=== PATIENT | female | born 1985 | race Caucasian/White ===

== ENCOUNTER 2016-10-29 16:54 | Inpatient (IN) | payer MEDICAID ==
[~2016-10-29] VITALS: Ht 160 cm; Wt 76.4 kg
[2016-10-29 17:05] VITALS: Ht 160 cm; Wt 76.4 kg
[2016-10-29] MEDS ORDERED: PRENAT PO (17:05)
[2016-10-29 17:06] VITALS: BP 124/83; PULSE 84; RESP 18
[2016-10-29 17:36] LABS: ADD UMIC YES; URINE BILIRUBIN (Dip) NEGATIVE (NEGATIVE); URINE BLOOD (Dip) 2+ (NEGATIVE); URINE COLOR LT. YELLOW (YELLOW); URINE GLUCOSE (Dip) NEGATIVE (NEGATIVE); URINE KETONES (Dip) NEGATIVE (NEGATIVE); URINE LEUKOCYTE ESTERASE (Dip) 2+ (NEGATIVE); URINE NITRITE (Dip) NEGATIVE (NEGATIVE); URINE TOTAL PROTEIN (Dip) NEGATIVE (NEGATIVE); URINE UROBILINOGEN (Dip) 0.2 E.U./dL (0.1-1.0)
[2016-10-29 18:12] LABS: BACTERIA,URINE MANY; SQUAMOUS EPITHELIAL CELL,UR MODERATE
--- NOTE | 2016-10-29 18:16 | RADRPT ---
PROCEDURE: Limited obstetric ultrasound CLINICAL INDICATION: distress TECHNIQUE: Multiple transverse and longitudinal grayscale images of the pelvis were obtained hawkins sabdominally and endovaginally.. COMPARISON: same day FINDINGS: There is a single live intrauterine gestation in a vertex position with a heart rate of 152 bp m. The cervix is closed and measures 3.4 cm in length. RPTAT: AA IMPRESSION: Cervix length measures 3.4 cm. Physician Tonio Date Time Electronically viewed and signed by Fco Lemus Physician on 10/29/2016 18:15 RA/
--- NOTE | 2016-10-29 19:43 | RADRPT ---
PROCEDURE: Renal US. CLINICAL INDICATION: with flank pain. TECHNIQUE: Multiple sonographic images of the kidneys were obtained. The images were reviewed on a PACS workstation. COMPARISON: No prior studies are available for comparison. FINDINGS: The right kidney measures 10.9 cm. The left kidney measures 0.0 cm. The kidneys demonstrate normal e chogenicity. Mild right hydronephrosis is observed. No solid masses or stones are seen. The bladder is filled with a moderate amount of urine and has an unremarkable appearance. IMPRESSION: Moderate right hydronephrosis. Etiology is uncertain. If further characterization is needed MRI co uld be helpful. RPTAT: AA .Hollis Nielson MD, Date Time Electronically viewed and signed by .Hollis Nielson MD, on 10/29/2016 19:43 .P/
[2016-10-29] MEDS ORDERED: DEXTROSE 5%-LR 1,000 ML IV SCH (20:30)
[2016-10-29] MEDS ORDERED: AL HYDROX/MG HYDROX/SIMETH 30 ML CUP PO PRN (20:30)
[2016-10-29] MEDS ORDERED: ACETAMINOPHEN 325 MG TAB PO PRN (20:30)
[2016-10-29] MEDS ORDERED: BUTORPHANOL 2 MG INJ IV PRN ×2 (21:00)
[2016-10-29] MEDS ORDERED: ONDANSETRON 4 MG INJ IV PRN (21:00)
--- NOTE | 2016-10-29 21:04 | TRIAGE ---
OB Triage Datetime Report Generated by CPN: 10/29/2016 21:04 Datetime: 10/29/2016 20:00 Vaginal Exam Membrane Status: Intact Datetime: 10/29/2016 18:27 Labor Evaluation Frequency: OCCAS Monitor Mode: External Duration (sec)2399: 40-70 Quality: Mild Pattern: Normal: <= 5 Contractions in 10 Minutes Resting Tone [place]: Relaxed Heart Rate FHR Baseline Rate: 145 Monitor Mode: External US FHR Baseline Changes: No Baseline Change Variability: Moderate 6-25 bpm Accelerations: 15X15 Decelerations: None Category: Category I Datetime: 10/29/2016 17:30 Labor Evaluation Frequency: OCCAS Monitor Mode: External Duration (sec)2399: 40-60 Quality: Mild Pattern: Normal: <= 5 Contractions in 10 Minutes Resting Tone [place]: Relaxed Heart Rate FHR Baseline Rate: 145 Monitor Mode: External US Variability: Moderate 6-25 bpm Accelerations: 15X15 Decelerations: None Category: Category I Datetime: 10/29/2016 17:12 Assessment Type: Admission Assessment Maternal Assessment Level of Consciousness: Fully Conscious DTR's/Clonus: DTRs 2+; No Clonus Headache: Denies Blurred Vision: No Respiratory Effort: Unlabored; Regular Rhythm; Equal Expansion Breath Sounds, Left: Clear and Equal Breath Sounds, Right: Clear and Equal Nausea/Vomiting: Denies RUQ Epigastric Pain: Denies Lower Extremities Edema: None Degree: None Upper Extremities Edema: None Degree: None Facial Edema: None Fall Risk Assessment History of Falling: (0) No Secondary Diagnosis: (0) No Ambulatory Aid: (0) Bedrest/Nurse Assist IV Therapy: (0) No Gait: (0) Normal/Bedrest/Immobile Mental Status: (0) Oriented to Own Ability Fall Score: 0 Fall Risk Score Definition: No Risk: No action required Datetime: 10/29/2016 17:09 Time of Arrival: 10/29/2016 19:45 EGA: 31.3 Arrived By: Ambulatory Arrived From: Home Chief Complaint: BACK PAIN Movement: Present Contractions: Denies/Absent Rupture of Membranes: Denies Vaginal Bleeding: None Vaginal Discharge: Denies Recent Sexual Intercouse: Denies Abdominal Trauma: Not Applicable Patient Complaints: Back Pain; Other Time Provider Notified: 10/29/2016 17:54 Provider Notified: DR BROWN Initial Plan: NST, UA AND CERVICAL LENGHT
[2016-10-29 21:12] LABS: ADD SCAN DIFF NO
[2016-10-29 21:21] LABS: BASOPHILS % 0.2 % (0.0-2.0); EOSINOPHILS % 0.1 % (0.0-7.0); HEMATOCRIT 37.9 % (37.0-47.0); LYMPHOCYTES % 12.9 % (15.0-51.0); MEAN CORPUSCULAR HEMOGLOBIN 32.2 pg (29.0-33.0); MEAN CORPUSCULAR HGB CONC 34.3 g/dl (32.0-37.0); MEAN CORPUSCULAR VOLUME 93.8 fl (82.0-101.0); MEAN PLATELET VOLUME 10.2 fl (7.4-10.4); MONOCYTE # 0.7 10^3/ul (0.3-0.9); MONOCYTES % 4.4 % (0.0-11.0); NEUTROPHIL # 12.6 10^3/ul (1.6-7.5); NEUTROPHILS % 81.7 % (39.0-77.0); PLATELET COUNT 336 10^3/UL (140-415); RED BLOOD COUNT 4.04 10^6/ul (4.20-5.40); RED CELL DISTRIBUTION WIDTH 12.4 % (11.5-14.5); WHITE BLOOD COUNT 15.4 10^3/ul (4.8-10.8)
[2016-10-29 21:30] LABS: ALBUMIN 3.7 g/dl (3.3-4.9)
[2016-10-29] MEDS: DEXTROSE 5%-LR 1,000 ML IV SCH (21:30)
[2016-10-29 21:31] LABS: POTASSIUM 4.6 mmol/L (3.5-5.1)
[2016-10-29 21:33] LABS: ALBUMIN/GLOBULIN RATIO 1.12; BILIRUBIN,INDIRECT 0.4 mg/dl (0-1.1); BILIRUBIN,TOTAL 0.4 mg/dl (0.2-1.3); CREATININE 0.57 mg/dl (0.44-1.00)
[2016-10-29 21:34] LABS: CALCIUM 9.8 mg/dl (8.4-10.2)
[2016-10-29] MEDS: CEFAZOLIN 2 GM/50 ML (PMX) 50 ML IV SCH (21:44)
--- NOTE | 2016-10-29 21:49 | HP ---
Date/Time of Note Date/Time of Note DATE: 10/29/16 TIME: 21:41 OB - History Hx of Present Free Text/Dictation 31 y.o. A1 with an IUP at 31w 3 d c/o right flank pain since yesterday. Denies fever, chills, nausea, vomiting. Last Menstrual Period: Oct 29, 2016 Estimated Due Date: Dec 28, 2016 : 3 Para: 1 Spontaneous : 1 Care: Good Care Ultrasounds: Normal mid trimester US Obstetrical Complications: None Medical Complications: None Past Family/Social History * records not available at this time. Per pt no medical problems. Past surgical history includes one D and C only. Past OB history is one only. NKDA OB Admission Exam Vital Signs Vital Signs Vital Signs Date Time Temp Pulse Resp B/P Pulse Ox O2 Delivery O2 Flow Rate FiO2 10/29/16 17:06 98.0 84 18 124/83 Room Air Physical Exam HEENT: WNL Heart: Rhythm Normal Lungs: Clear Abdomen: Abnormal (1-2+ right CVAT. Left negative.) Extremities: Normal Reflexes: Normal Accelerations: Accelerations Present Decelerations: No Decelerations Varibility: Moderate Contractions on Admission: None Last 72 hours Lab Results CBC & BMP 10/29/16 20:35 OB Assessment/Plan Reason for admission: other (Right pyleonephritis.) Plan: Other (IV Ancef, IV hydration, pain medicataions as needed. Urine cx.) DAMON GA MD Oct 29, 2016 21:49
[2016-10-30] MEDS: DEXTROSE 5%-LR 1,000 ML IV SCH ×3 (01:09→18:24)
[2016-10-30] MEDS: CEFAZOLIN 2 GM/50 ML (PMX) 50 ML IV SCH ×3 (05:55→21:52)
[2016-10-30] MEDS: MULTIVIT/MIN/FOLATE/IRON/PREN TAB PO SCH (09:16)
[2016-10-30] MEDS: GENTAMICIN 80 MG/NS (PMX) 50 ML IVPB SCH ×2 (16:01→23:53)
--- NOTE | 2016-10-30 19:44 | PN ---
Date/Time of Note Date/Time of Note DATE: 10/30/16 TIME: 19:40 OB Subjective Subjective Subjective Afebrile vital signs stable, no complaint of back pain she says that she feels much better since admission currently on 2 antibiotics Keflex and gentamicin Urine has been sent for culture and sensitivity report not available yet, baby is doing well with category 1 heart tracing . ABIOLA BROWN MD Oct 30, 2016 19:44
[2016-10-30] MEDS: LACTATED RINGER'S 1,000 ML IV SCH (20:15)
[2016-10-31] MEDS: LACTATED RINGER'S 1,000 ML IV SCH (05:31)
[2016-10-31] MEDS: CEFAZOLIN 2 GM/50 ML (PMX) 50 ML IV SCH ×2 (05:31→10:00)
[2016-10-31] MEDS: GENTAMICIN 80 MG/NS (PMX) 50 ML IVPB SCH (08:01)
[2016-10-31] MEDS: MULTIVIT/MIN/FOLATE/IRON/PREN TAB PO SCH (09:01)
--- NOTE | 2016-10-31 13:31 | DS ---
Date/Time of Note Date/Time of Note DATE: 10/31/16 TIME: 13:25 Obstetrical Discharge Record Final Diagnosis Final Diagnosis: not delivered Complications Other (Suspected pyelonephritis) Condition on Discharge Physical Assessment Last Vitals: This is a 31 years old female 3 para 1 AB [address] [facility] at 31 week and 5/7days with chief complaint of right flank pain tentative diagnosis of possible pyelonephritis, patient was placed on antibiotic therapy, urine was sent for urinalysis and culture the culture results after 48 hours negative patient's pain has been resolved no more complaining of flank pain while in the hospital ,she was on cephalosporin and gentamicin, responded well ,being discharged home with a prescription of nitro Furadantin, Current Medications Medications (Trade) Dose Ordered Sig/Alexander Route PRN Reason Start Time Stop Time Status Last Admin Dose Admin Cefazolin Sodium/ Dextrose (Ancef 2 Gm/50 ml (Pmx)) 50 ml @ 100 mls/hr Q8 IV 10/29/16 22:00 10/31/16 10:00 Prenat Multivit/ [place]/Iron/Folic Ac ( S) 1 tab DAILY PO 10/30/16 09:00 10/31/16 09:01 Acetaminophen (Tylenol Tab) 650 mg Q4H PRN PO PAIN AND OR ELEVATED TEMP 10/29/16 20:30 Al Hydrox/Mg Hydrox/ Simethicone 30 ml 30 ml Q6H PRN PO GASTROINTESTINAL UPSET 10/29/16 20:30 Dextrose/Lactated Ringer's 1,000 ml @ 500 mls/hr Q2H IV 10/29/16 20:30 10/29/16 21:30 DC 10/29/16 20:47 Dextrose/Lactated Ringer's (D5-Lr) 1,000 ml @ 125 mls/hr Q8H IV 10/29/16 21:30 10/30/16 20:03 DC 10/30/16 18:24 Butorphanol Tartrate (Stadol) 1 mg Q3H PRN IV PAIN 10/29/16 21:00 10/29/16 22:13 Butorphanol Tartrate (Stadol) 2 mg Q3H PRN IV PAIN 10/29/16 21:00 Ondansetron HCl 4 mg 4 mg Q4H PRN IV NAUSEA AND/OR VOMITING 10/29/16 21:00 Gentamicin Sulfate 50 ml @ 104 mls/hr Q8H IVPB 10/30/16 16:00 10/31/16 08:01 Lactated Ringer's (Lr) 1,000 ml @ 125 mls/hr Q8H IV 10/30/16 20:01 10/31/16 05:31 recommended to make an appointment to be seen at the clinic in 1 week Voiding: Yes Bowel Movement: Yes Breast: Soft, non-tender Calf Tenderness: No Patient Condition: Good ABIOLA BROWN MD Oct 31, 2016 13:31
== END 2016-10-31 14:00 | disposition home or self-care (01) | DRG 781 ==
LOC: OBT 16:54 → L-D 16:55 → OBT 19:45 → OBG 21:27
PROVIDERS: ADMIT Obstetrics & Gynecology; ATTEND Obstetrics & Gynecology
DX: O23.03 Infections of kidney in pregnancy, third trimester (principal); Z3A.31 31 weeks gestation of pregnancy
CPT/HCPCS: 76775; 76817; 80053; 81001; 81003; 85025; 87086; G0463; J0690; J1580; J7120; J7121

== ENCOUNTER 2016-12-31 02:30 | Inpatient (IN) | payer MEDICAID ==
[~2016-12-31] VITALS: Ht 160 cm; Wt 81.3 kg
[~2016-12-31 02:30] MED LIST: PRENAT PO
[2016-12-31 02:43] VITALS: Ht 160 cm; Wt 81.3 kg
[2016-12-31 02:44] VITALS: BP 123/83; PULSE 79; RESP 18
[2016-12-31] MEDS ORDERED: LACTATED RINGER'S 1,000 ML IV PRN (04:00)
[2016-12-31] MEDS: LACTATED RINGER'S 1,000 ML IV SCH ×3 (04:10→13:09)
[2016-12-31 04:17] LABS: ADD SCAN DIFF NO
[2016-12-31 04:27] LABS: BASOPHILS % 0.2 % (0.0-2.0); EOSINOPHILS # 0.1 10^3/ul (0.0-0.5); EOSINOPHILS % 1.1 % (0.0-7.0); HEMATOCRIT 35.4 % (37.0-47.0); HEMOGLOBIN 11.9 g/dl (12.0-16.0); LYMPHOCYTES # 2.4 10^3/ul (0.8-2.9); LYMPHOCYTES % 23.9 % (15.0-51.0); MEAN CORPUSCULAR HEMOGLOBIN 30.5 pg (29.0-33.0); MEAN CORPUSCULAR HGB CONC 33.6 g/dl (32.0-37.0); MEAN CORPUSCULAR VOLUME 90.8 fl (82.0-101.0); MEAN PLATELET VOLUME 11.3 fl (7.4-10.4); MONOCYTE # 0.6 10^3/ul (0.3-0.9); MONOCYTES % 5.7 % (0.0-11.0); NEUTROPHIL # 6.9 10^3/ul (1.6-7.5); NEUTROPHILS % 68.7 % (39.0-77.0); PLATELET COUNT 252 10^3/UL (140-415); RED CELL DISTRIBUTION WIDTH 13.6 % (11.5-14.5); WHITE BLOOD COUNT 10.1 10^3/ul (4.8-10.8)
[2016-12-31] MEDS ORDERED: OXYTOCIN 30 UNITS/LR 500 ML IV SCH ×3 (04:30)
[2016-12-31] MEDS ORDERED: OXYTOCIN 30 UNITS/LR 500 ML IV PRN (04:30)
[2016-12-31] MEDS ORDERED: CARBOPROST 250 MCG INJ IM PRN (04:30)
[2016-12-31] MEDS ORDERED: IBUPROFEN 600 MG TAB PO PRN (04:30)
[2016-12-31] MEDS ORDERED: ACETAMINOPHEN/CODEINE #3 TAB PO PRN ×3 (04:30→16:30)
[2016-12-31] MEDS ORDERED: MISOPROSTOL 200 MCG TAB PR PRN (04:30)
[2016-12-31] MEDS ORDERED: LIDOCAINE 1% (MPF) 30 ML INJ INJ PRN (04:30)
[2016-12-31] MEDS ORDERED: METHYLERGONOVINE 0.2 MG INJ IM PRN (04:30)
[2016-12-31] MEDS ORDERED: AMPICILLIN 2 GM/NS (PMX) 100 ML IV ONE (04:30)
[2016-12-31] MEDS ORDERED: BUTORPHANOL 2 MG INJ IV PRN ×2 (04:30)
[2016-12-31 04:33] LABS: INR 0.92; PARTIAL THROMBOPLASTIN TIME 27.6 Sec (25.0-35.0); PROTIME 12.4 Sec (12.2-14.2)
[2016-12-31 07:04] LABS: ALBUMIN 3.3 g/dl (3.3-4.9)
[2016-12-31 07:07] LABS: BILIRUBIN,INDIRECT 0.2 mg/dl (0-1.1); BILIRUBIN,TOTAL 0.2 mg/dl (0.2-1.3); CREATININE 0.57 mg/dl (0.44-1.00); TOTAL PROTEIN 6.6 g/dl (6.1-8.1)
[2016-12-31 07:08] LABS: CALCIUM 9.2 mg/dl (8.4-10.2); URIC ACID 4.2 mg/dl (3.1-7.9)
[2016-12-31 07:47] LABS: URINE COLOR LT. YELLOW (YELLOW)
[2016-12-31 07:48] LABS: ADD UMIC YES; URINE BILIRUBIN (Dip) NEGATIVE (NEGATIVE); URINE BLOOD (Dip) TRACE (NEGATIVE); URINE GLUCOSE (Dip) NEGATIVE (NEGATIVE); URINE KETONES (Dip) NEGATIVE (NEGATIVE); URINE LEUKOCYTE ESTERASE (Dip) NEGATIVE (NEGATIVE); URINE NITRITE (Dip) NEGATIVE (NEGATIVE); URINE TOTAL PROTEIN (Dip) NEGATIVE (NEGATIVE); URINE UROBILINOGEN (Dip) 0.2 E.U./dL (0.1-1.0)
[2016-12-31 07:49] LABS: BACTERIA,URINE FEW; URINE RBCS 0-2 /HPF (0)
[2016-12-31] MEDS ORDERED: AMPICILLIN 1 GM/NS (PMX) 50 ML IV SCH (08:30)
[2016-12-31] MEDS ORDERED: DIPHENHYDRAMINE 50 MG INJ IV PRN (12:30)
[2016-12-31] MEDS ORDERED: ONDANSETRON 4 MG INJ IV PRN ×2 (12:30→16:30)
[2016-12-31] MEDS ORDERED: NALOXONE (0.4 MG/ML) INJ IV PRN (12:30)
[2016-12-31] MEDS ORDERED: FENTAnyl 2MCG/ML-ROPIV 0.2% 100 ML BAG EPI SCH (12:30)
--- NOTE | 2016-12-31 14:33 | LDN ---
Date/Time of Note Date/Time of Note DATE: 12/31/16 TIME: 14:27 Delivery Summary Normal spontaneous vaginal delivery of a baby girl from OA position shoulders delivered without difficulty rest of the baby's body followed cord was clamped after stopped pulsation placenta spontaneous expulsion inspected complete, patient sustained small first-degree perineal laceration Weeks of Gestation 40 weeks and 3 day Placenta Delivered: Spontaneously Meconium: none Episiotomy: No Perineal laceration: 1 Laceration repair: First-degree perineal laceration repaired with 3-0 chromic catgut Anesthesia type: Epidural Estimated blood loss: 300 Sponge & Needle done & correct: Yes All needle counts correct: Yes Any foreign bodies felt in the: No Problems: Delivery Information Sex Infant Sex: female Apgars 1 Minute: 8 5 Minute: 9 Suctioning Nose & mouth suctioned at [place]: Yes Delee suction performed: No Umbilical Cord Umbilical cord with: 3 Vessels Cord presentations: no nuchal cord Cord Blood was obtained: Yes ABIOLA BROWN MD Dec 31, 2016 14:33
--- NOTE | 2016-12-31 14:37 | HP ---
Date/Time of Note Date/Time of Note DATE: 12/31/16 TIME: 14:33 OB - History Hx of Present Free Text/Dictation 30 years old female 3 para 1 EDC of December 28, 2016 admitted to [facility] in labor on admission pelvic examination cervical dilatation 2 cm 50% effacement vertex at -3 station 5 contractions every 10 minutes with intact membranes patient may require labor augmentation Chief Complaint: Labor contractions Estimated Due Date: Dec 28, 2016 : 3 Para: 1 Spontaneous : 1 Care: Good Care Ultrasounds: Normal mid trimester US Medical Complications: None Past Family/Social History * Past Medical, Surgical, Family and Obstetric Histories reviewed from chart. Rubella: immune RPR/VDRL: Negative GBS Status: Negative HBsAG: Negative OB Admission Exam Vital Signs Vital Signs Vital Signs Date Time Temp Pulse Resp B/P Pulse Ox O2 Delivery O2 Flow Rate FiO2 12/31/16 02:44 97.9 79 18 123/83 Room Air Physical Exam HEENT: WNL Heart: Rhythm Normal Lungs: Clear, Equal Extremities: Normal Reflexes: Normal Cervical Dilatation: 2cm Effacement: 50% Station: -2 Membranes: Intact Heart Rate: 130's Accelerations: Accelerations Present Decelerations: No Decelerations Varibility: Minimum Contractions on Admission: 6-10 Minutes Apart Intensity: Mild Last 72 hours Lab Results CBC & BMP 12/31/16 04:00 Liver Function Test 12/31/16 04:00 Alanine Aminotransferase (ALT/SGPT) 31 Albumin 3.3 Alkaline Phosphatase 214 H Aspartate Amino Transf (AST/SGOT) 29 Direct Bilirubin 0.00 Total Protein 6.6 OB Assessment/Plan Reason for admission: other (Early labor) Plan: Other (Labor augmentation) ABIOLA BROWN MD Dec 31, 2016 14:37
[2016-12-31 15:45] VITALS: BP 128/72; PULSE 83; RESP 18
[2016-12-31] MEDS ORDERED: WITCH HAZEL/GLYCERIN PAD PR PRN (16:30)
[2016-12-31] MEDS ORDERED: DIBUCAINE 1% 30 GM OINT PR PRN (16:30)
[2016-12-31] MEDS ORDERED: ACETAMINOPHEN 325 MG TAB PO PRN (16:30)
[2016-12-31] MEDS ORDERED: OXYCODONE/ASPIRIN (4.88/325) TAB PO PRN ×2 (16:30)
[2016-12-31] MEDS ORDERED: BENZOCAINE 20% 56 ML SPRAY TOP PRN (16:30)
[2016-12-31] MEDS ORDERED: LANOLIN 7 GM TUBE TOP PRN (16:30)
[2016-12-31] MEDS: OXYTOCIN 30 UNITS/LR 500 ML IV SCH ×2 (16:36→20:02)
[2016-12-31 16:45] VITALS: BP 122/68; PULSE 78; RESP 18
[2016-12-31] MEDS: IBUPROFEN 600 MG TAB PO SCH ×2 (17:43→23:35)
[2016-12-31 20:00] VITALS: BP 131/68; PULSE 72; RESP 18
[2016-12-31] MEDS: SENNA/DOCUSATE NA (8.6MG/50MG) TAB PO SCH (21:02)
[2016-12-31 23:54] VITALS: BP 127/66; PULSE 75; RESP 18
[2017-01-01 04:00] VITALS: BP 135/81; PULSE 79; RESP 18
[2017-01-01] MEDS: IBUPROFEN 600 MG TAB PO SCH ×4 (06:45→23:57)
[2017-01-01 08:00] VITALS: BP 130/80; PULSE 90; RESP 18
[2017-01-01 08:24] LABS: ADD SCAN DIFF NO
[2017-01-01 08:34] LABS: BASOPHILS % 0.3 % (0.0-2.0); EOSINOPHILS % 0.3 % (0.0-7.0); HEMATOCRIT 30.1 % (37.0-47.0); LYMPHOCYTES # 2.4 10^3/ul (0.8-2.9); LYMPHOCYTES % 18.3 % (15.0-51.0); MEAN CORPUSCULAR HEMOGLOBIN 30.6 pg (29.0-33.0); MEAN CORPUSCULAR HGB CONC 33.2 g/dl (32.0-37.0); MEAN PLATELET VOLUME 11.5 fl (7.4-10.4); MONOCYTE # 0.7 10^3/ul (0.3-0.9); MONOCYTES % 5.7 % (0.0-11.0); NEUTROPHIL # 9.6 10^3/ul (1.6-7.5); NEUTROPHILS % 75.1 % (39.0-77.0); PLATELET COUNT 260 10^3/UL (140-415); RED BLOOD COUNT 3.27 10^6/ul (4.20-5.40); RED CELL DISTRIBUTION WIDTH 13.7 % (11.5-14.5); WHITE BLOOD COUNT 12.8 10^3/ul (4.8-10.8)
--- NOTE | 2017-01-01 08:56 | PN ---
Date/Time of Note Date/Time of Note DATE: 01/01/17 TIME: 08:55 OB Subjective Subjective Subjective day 1 VSs afebrile abdomen soft uterus firm lochia normal extremity normal ambulation recommended. Laboratory Tests Test 01/01/17 07:40 White Blood Count 12.810^3/ul Red Blood Count 3.2710^6/ul Hemoglobin 10.0g/dl Hematocrit 30.1% Mean Corpuscular Volume 92.0fl Mean Corpuscular Hemoglobin 30.6pg Mean Corpuscular Hemoglobin Concent 33.2g/dl Red Cell Distribution Width 13.7% Platelet Count 22501^3/UL Mean Platelet Volume 11.5fl Neutrophils % 75.1% Lymphocytes % 18.3% Monocytes % 5.7% Eosinophils % 0.3% Basophils % 0.3% Nucleated Red Blood Cells % 0.0/100WBC Neutrophils # 9.610^3/ul Lymphocytes # 2.410^3/ul Monocytes # 0.710^3/ul Eosinophils # 0.010^3/ul Basophils # 0.010^3/ul Nucleated Red Blood Cells # 0.010^3/ul Current Medications Medications (Trade) Dose Ordered Sig/Alexander Route PRN Reason Start Time Stop Time Status Last Admin Dose Admin Lactated Ringer's 1,000 ml @ 125 mls/hr Q8H IV 12/31/16 04:03 12/31/16 16:03 DC 12/31/16 13:09 Ampicillin 100 ml @ 100 mls/hr ONCE ONCE IV 12/31/16 04:30 12/31/16 04:30 DC Ampicillin 50 ml @ 100 mls/hr Q4H IV 12/31/16 08:30 12/31/16 08:30 DC Oxytocin/Lactated Ringer's 500 ml @ 0 mls/hr TITRATE IV 12/31/16 04:30 12/31/16 16:03 DC 12/31/16 05:16 Butorphanol Tartrate (Stadol) 1 mg Q2H PRN IV PAIN 12/31/16 04:30 12/31/16 16:03 DC Butorphanol Tartrate (Stadol) 2 mg Q2H PRN IV PAIN 12/31/16 04:30 12/31/16 16:04 DC 12/31/16 10:51 Lidocaine 30 ml 30 ml ONCE PRN INJ EPISIOTOMY/TEARING 12/31/16 04:30 12/31/16 16:04 DC Oxytocin/Lactated Ringer's 500 ml @ 125 mls/hr ONCE -MAY REPEAT X1 IV 12/31/16 04:30 12/31/16 16:04 DC 12/31/16 14:54 Oxytocin/Lactated Ringer's 500 ml @ 125 mls/hr ONCE IV 12/31/16 04:30 12/31/16 16:04 DC Ibuprofen (Motrin) 600 mg ONCE PRN PO Mild Pain (Pain Score 1-3) 12/31/16 04:30 12/31/16 16:03 DC 12/31/16 15:30 Acetaminophen/ Codeine Phosphate 2 tab 2 tab ONCE PRN PO Moderate to Severe Pain (4-10) 12/31/16 04:30 12/31/16 16:04 DC Lactated Ringer's 1,000 ml @ 2,000 mls/hr Q30M PRN IV PRE-EPIDURAL BOLUS 12/31/16 04:00 12/31/16 16:04 DC 12/31/16 12:12 Oxytocin/Lactated Ringer's 500 ml @ 0 mls/hr ONCE PRN IV For Hemorrhage Management 12/31/16 04:30 12/31/16 16:04 DC Methylergonovine Maleate (Methergine) 0.2 mg ONCE PRN IM VAGINAL BLEEDING 12/31/16 04:30 12/31/16 16:03 DC Carboprost Tromethamine (Hemabate) 250 mcg ONCE PRN IM VAGINAL BLEEDING 12/31/16 04:30 12/31/16 16:03 DC Misoprostol (Cytotec) 1,000 mcg ONCE PRN WI VAGINAL BLEEDING 12/31/16 04:30 12/31/16 16:04 DC Naloxone HCl (Narcan) 0.1 mg Q2M PRN IV FOR RESP RATE 8 OR LESS 12/31/16 12:30 12/31/16 16:04 DC Diphenhydramine HCl (Benadryl) 25 mg Q6H PRN IV ITCHING 12/31/16 12:30 12/31/16 16:04 DC Ondansetron HCl (Zofran Inj) 4 mg Q6H PRN IV NAUSEA AND/OR VOMITING 12/31/16 12:30 12/31/16 16:04 DC Fentanyl/ Ropivacaine 100 ml 100 ml EPIDURAL INFUSION EPI 12/31/16 12:30 12/31/16 16:04 DC Oxytocin/Lactated Ringer's 500 ml @ 125 mls/hr Q4H IV 12/31/16 16:02 01/01/17 00:01 DC 12/31/16 16:36 Ibuprofen (Motrin) 600 mg Q6 PO 12/31/16 18:00 01/01/17 06:45 Acetaminophen (Tylenol Tab) 650 mg Q4H PRN PO PAIN LEVEL 1-5 12/31/16 16:30 Acetaminophen/ Codeine Phosphate (Tylenol No.3) 1 tab Q4H PRN PO PAIN LEVEL 1-5 12/31/16 16:30 Acetaminophen/ Codeine Phosphate (Tylenol No.3) 2 tab Q4H PRN PO PAIN LEVEL 6-10 12/31/16 16:30 Oxycodone/Aspirin (Percodan) 1 tab Q3H PRN PO PAIN LEVEL 1-5 12/31/16 16:30 Oxycodone/Aspirin (Percodan) 2 tab Q3H PRN PO PAIN LEVEL 6-10 12/31/16 16:30 Ondansetron HCl (Zofran Inj) 4 mg Q6H PRN IV NAUSEA AND/OR VOMITING 12/31/16 16:30 Senna/Docusate Sodium (Senokot-S) 1 tab BID PO 12/31/16 21:00 12/31/16 21:02 Witch [place]/ Glycerin (Tucks Pads) 1 pad BEDSIDE MEDICATION PRN WI HEMORRHOID/EPISIOTMY PAIN 12/31/16 16:30 12/31/16 16:35 Benzocaine (Dermoplast [place]) 1 spray BEDSIDE MEDICATION PRN TOP HEMORRHOID/EPISIOTMY PAIN 12/31/16 16:30 12/31/16 16:35 Dibucaine (Nupercainal) 1 applic BEDSIDE MEDICATION PRN WI HEMORRHOID/EPISIOTMY PAIN 12/31/16 16:30 Lanolin (Har-U-Tlwbka) 1 applic BEDSIDE MEDICATION PRN TOP BEDSIDE FOR BRITTANIE TO NIPPLES 12/31/16 16:30 12/31/16 16:35 Measles/Mumps/ Rubella Vaccine Live (Mmr Ii Vaccine) 0.5 ml ONCE ONCE SC* 01/02/17 09:00 01/02/17 09:01 ABIOLA BROWN MD Jan 01, 2017 08:56
[2017-01-01] MEDS: SENNA/DOCUSATE NA (8.6MG/50MG) TAB PO SCH ×2 (12:42→21:40)
[2017-01-01 16:34] VITALS: BP 124/86; RESP 18
[2017-01-01 20:10] VITALS: BP 110/76; PULSE 76; RESP 18
[2017-01-02 04:13] VITALS: BP 118/80; PULSE 98
[2017-01-02] MEDS: IBUPROFEN 600 MG TAB PO SCH ×2 (06:01→11:45)
--- NOTE | 2017-01-02 07:51 | PD.PPDC ---
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 Diagnosis Final Diagnosis: Full term, delivered vaginally Condition Patient Condition: Good Diet Diet: Resume Regular Diet Activity/Restrictions Activity: Normal Activity May Shower Restrictions: No Sexual Activity Nothing in the Vagina No [place] No Tampons, douche Follow-up Follow-up with Physician: 4, Week/Weeks (or as your doctor has instructed) Return to clinic for QUALITY IMPROVEMENT MANAGER Instructions: Fever greater than 101 Chills Worsening abdominal pain Excessive Vaginal Bleeding More than 2 pads per hour Unable to tolerate diet OB Instructions: Breast Tenderness Depression Blurried Vision Headache SAKSHI DURAN MD Jan 02, 2017 07:51
--- NOTE | 2017-01-02 07:53 | DS ---
Date/Time of Note Date/Time of Note DATE: 01/02/17 TIME: 07:52 Obstetrical Discharge Record Final Diagnosis Final Diagnosis: Term delivered Vaginal Delivery Obstetrical Delivery: Spontaneous Complications Rupture of Membranes: No Condition on Discharge Physical Assessment Last Vitals: T 98.0 P 98 BP 118/80 Voiding: Yes Bowel Movement: No Breast: Soft, non-tender Fundus: Firm Calf Tenderness: No Patient Condition: Good SAKSHI DURAN MD Jan 02, 2017 07:53
[2017-01-02 08:00] VITALS: BP 114/72; PULSE 91; RESP 18
[2017-01-02] MEDS ORDERED: MEASLES,MUMPS,RUBELLA VACCINE INJ SC* ONE (09:00)
[2017-01-02] MEDS: SENNA/DOCUSATE NA (8.6MG/50MG) TAB PO SCH (11:45)
== END 2017-01-02 12:50 | disposition home or self-care (01) | DRG 775 ==
LOC: OBT 02:30 → L-D 02:31 → OBT 03:32 → L-D 03:34 → PP1 15:36
PROVIDERS: ADMIT Obstetrics & Gynecology; ATTEND Obstetrics & Gynecology
PROC: 10E0XZZ Delivery of Products of Conception, External Approach (ICD-10-PCS; principal; 2016-12-31)
PROC: 0HQ9XZZ Repair Perineum Skin, External Approach (ICD-10-PCS; 2016-12-31)
DX: O48.0 Post-term pregnancy (principal); O70.0 First degree perineal laceration during delivery; Z3A.40 40 weeks gestation of pregnancy; Z37.0 Single live birth
CPT/HCPCS: 62319; 80053; 81001; 81003; 84560; 85025; 85610; 85730; 86592; 86900; 86901; C1751; G0463; J2590; J3010; J7120